=== PATIENT | male | born 1950 ===

== ENCOUNTER 2017-04-24 20:30 | Emergency (ER) | payer MEDICARE, MEDICAID ==
[2017-04-24 20:46] VITALS: RESP 16; TEMP 97.7
--- NOTE | 2017-04-24 22:00 | ED PDOC ---
HPI: Abdomen Time Seen by Provider: 04/24/17 20:59 Chief Complaint (Nursing): Abdominal Pain Chief Complaint (Provider): Diarrhea, weakness History Per: Patient Additional Complaint(s): 65yo male, PMH of PMH, CAD, HNT, DMTYPEII, HYPONATREMIA, OSTEOARTHRITIS, BPH, c /o abdominal cramping and generalized weakness, similar to past when "sodium was low". Denies chest pain, cough, fever. Denies new medications. Past Medical History Vital Signs: Last Vital Signs Temp 97.7 F 04/24/17 20:43 Pulse 71 04/24/17 20:43 Resp 16 04/24/17 20:43 BP 156/84 H 04/24/17 20:43 Pulse Ox 100 04/25/17 03:59 - Medical History PMH: Anxiety, CAD, Cardia Arrhythmia, Fractures (right ankle- fell on ice), HTN , Hypercholesterolemia Denies: HIV, Chronic Kidney Disease - Surgical History Surgical History: Cholecystectomy, Pacemaker - Family History Family History: States: No Known Family Hx - Home Medications Home Medications: Ambulatory Orders Medication Instructions Recorded Aspirin [Ecotrin] 81 mg PO DAILY 04/24/17 Carvedilol [Coreg] 12.5 mg PO BID 04/24/17 Clopidogrel [Plavix] 1 tab PO DAILY 04/24/17 Ferrous Sulfate [Feosol] 1 tab PO TID 04/24/17 Finasteride [Proscar] 1 tab PO DAILY 04/24/17 Glipizide [Glucotrol] 10 mg PO DAILY 04/24/17 Linagliptin [Tradjenta] 1 tab PO DAILY 04/24/17 Meloxicam [Mobic] 1 tab PO DAILY 04/24/17 Metformin HCl [Glucophage] 1,000 mg PO BID 04/24/17 Pravastatin Sodium [Pravachol] 1 tab PO DAILY 04/24/17 Tamsulosin HCl [Flomax] 1 tab PO DAILY 04/24/17 Valsartan [Diovan] 320 mg PO DAILY 04/24/17 Dicyclomine [Bentyl] 10 mg PO QID PRN #10 cap 04/25/17 - Allergies Allergies/Adverse Reactions: Allergies Allergy/AdvReac Type Severity Reaction Status Date / Time No Known Allergies Allergy Verified 05/12/15 12:23 - Laboratory Results Result Diagrams: 04/24/17 22:12 04/24/17 22:12 - ECG O2 Sat by Pulse Oximetry: 100 Medical Decision Making Medical Decision Making: CBC and COMP resulted WNL Amylase 161 Lipase 309 US IMPRESSION: Massively dilated common bile duct, noting the history of cholecystectomy, laboratory correlation is recommended. HIDA scan may sometimes clarify regarding biliary obstruction. The pancreas could not be visualized, cannot comment with regard to possibility of pancreatitis noted laboratory abnormalities described in the history. CT scan: IMPRESSION: 1. Probable enterocolitis noting fluid-filled large intestine. 2. Massive biliary ductal dilatation in this patient who is status post cholecystectomy, with suspicion for thickening of the adjacent duodenal wall and endoscopic correlation to exclude a lesion is recommended. Mild perinephric stranding, correlate for infection or stone passage. Appendix as above with acute appendicitis not favored at this time. Cardiomegaly. Case discussed with ED MD, Dr. Willams, who agreed Pt stable for discharge at this time. pt educated on all results and demonstrated full understanding. Importance of follow up was stressed. Advised to return to ED if at anytime condition worsens Disposition - Clinical Impression Clinical Impression: Abdominal discomfort - Patient ED Disposition Is Patient to be Admitted: No - Disposition Referrals: Gautam Pfeiffer MD [Staff Provider] - Disposition: Routine/Home Disposition Time: 03:58 Condition: STABLE Prescriptions: Dicyclomine [Bentyl] 10 mg PO QID PRN #10 cap PRN Reason: Pain, Mild (1-3) Instructions: Abdominal Pain (ED) Forms: [employer] (Slovak) Print Language: HAITIAN - POA Present On Arrival: None
[2017-04-24 22:16] LABS: BASO % 0.4 % (0.0-2.0); EOS # 0.2 K/uL (0.0-0.7); HEMATOCRIT 31.6 % (35.0-51.0); LYMPH # 1.7 K/uL (1.0-4.3); LYMPH % 18.6 % (20.0-40.0); MEAN CELL VOLUME 90.1 fl (80.0-94.0); MEAN CORPUSCULAR HEMOGLOBIN 31.3 pg (27.0-31.0); MEAN CORPUSCULAR HGB CONC 34.7 g/dL (33.0-37.0); MEAN PLATELET VOLUME 7.2 fl (7.2-11.7); MONO # 0.6 K/uL (0.0-0.8); MONO % 6.1 % (0.0-10.0); NEUT # 6.7 K/uL (1.8-7.0); NEUT % 72.9 % (50.0-75.0); RED CELL DISTRIBUTION WIDTH 13.3 % (11.5-14.5); WHITE BLOOD COUNT 9.2 K/uL (4.8-10.8)
[2017-04-24 22:25] LABS: ALB/GLOB RATIO 1.4 (1.0-2.1); ALKALINE PHOSPHATASE 55 U/L (38-126); ALT/SGPT 29 U/L (21-72); AMYLASE 161 U/L (30-110); AST/SGOT 20 U/L (17-59); BILIRUBIN,TOTAL 0.2 mg/dl (0.2-1.3); BLOOD UREA NITROGEN 10 mg/dl (9-20); CARBON DIOXIDE 21 mmol/L (22-30); CHLORIDE 100 mmol/L (98-107); GFR AFRICAN-AMERICAN > 60; GLUCOSE,RANDOM 108 mg/dL (75-110); LIPASE 309 U/L (23-300); POTASSIUM 4.1 MMOL/L (3.6-5.0); SODIUM 133 mmol/l (132-148); TOTAL PROTEIN 7.6 G/DL (6.3-8.2)
--- NOTE | 2017-04-25 00:33 | US ---
EXAM: US Abdomen Limited, Right Upper Quadrant CLINICAL HISTORY: 67 years old, male; Pain and abnormal findings; Abnormal lab test; Elevated amylase and elevated lipase; Abdominal pain; Epigastric; Additional info: Abdominal pain, elevated chevy/lipase TECHNIQUE: Real-time ultrasound of the right upper quadrant with image documentation. EXAM DATE/TIME: Exam ordered 04/24/2017 10:47 PM COMPARISON: No relevant prior studies available. FINDINGS: Liver: Liver is 15.3 cm. No intrahepatic bile duct dilation. Gallbladder: The patient is status post cholecystectomy. Common bile duct: Common bile duct is 15 mm which is markedly dilated even for the postcholecystectomy state. Pancreas: The pancreas was poorly seen and cannot be evaluated. Right kidney: Right kidney measures 10.8 x 4.2 x 4.6 cm. No stones. No hydronephrosis. IMPRESSION: Massively dilated common bile duct, noting the history of cholecystectomy, laboratory correlation is recommended. HIDA scan may sometimes clarify regarding biliary obstruction. The pancreas could not be visualized, cannot comment with regard to possibility of pancreatitis noted laboratory abnormalities described in the history.
[2017-04-25] MEDS ORDERED: Iohexol 240 (50 ml) PO ONE (00:48)
--- NOTE | 2017-04-25 03:37 | CT ---
EXAM: CT Abdomen and Pelvis With Intravenous Contrast CLINICAL HISTORY: 67 years old, male; Pain; Abdominal pain; Localized; Upper TECHNIQUE: Axial computed tomography images of the abdomen and pelvis with intravenous contrast. This CT exam was performed using one or more of the following dose reduction techniques: automated exposure control, adjustment of the mA and/or kV according to patient size, and/or use of iterative reconstruction technique. Coronal and sagittal reformatted images were created and reviewed. CONTRAST: 90 mL of [id number] administered intravenously. EXAM DATE/TIME: Exam ordered 04/25/2017 12:48 AM COMPARISON: US - RIGHT UPPER QUADRANT 04/24/2017 11:54:10 PM FINDINGS: Lower thorax: Artifact from a pacemaker is seen. There is cardiomegaly. Lung bases with prominent dependent vessels favored to represent gravitational changes. Small to moderate hiatus hernia containing oral contrast in keeping with reflux versus poor bolus passage. ABDOMEN: Liver: Unremarkable. No mass. Gallbladder and bile ducts: There is redemonstration of massive dilatation of the common bile duct in this patient status post cholecystectomy, with the common bile duct measuring up to 13.4 mm. There is relatively abrupt changing caliber at the ampulla, and suspicion as seen coronal image 54 for wall thickening of the adjacent duodenum. Endoscopic correlation to exclude a lesion is recommended. No calcified stones are seen and no choledocholithiasis was identified on ultrasound. There is moderate intrahepatic biliary ductal dilatation, particularly of the central intrahepatic biliary tree. Patient is status post cholecystectomy. Pancreas: The pancreatic duct is not dilated. Spleen: Unremarkable. No splenomegaly. Adrenals: Unremarkable. No mass. Kidneys and ureters: There is bilateral mild perinephric stranding. No hydronephrosis of either kidney. There is suggestion however of mild periureteral stranding of the right ureter. Laboratory correlation for possibility of stone passage versus infection is recommended. There are hypoattenuating findings too small to characterize in the bilateral kidneys. Stomach and bowel: There is fluid content in the majority of the large intestine with air-fluid level suggesting colitis/enterocolitis. There are no findings to suggest bowel obstruction. Appendix: The appendix is prominent at the tip measuring 9 mm as seen coronal image 61, however, it favor that the wall of the appendix is not thickened and there is no lala-appendiceal fluid, appendicitis is not favored. PELVIS: Bladder: Unremarkable. No mass. Reproductive: Prostate 3.5 cm. ABDOMEN and PELVIS: Intraperitoneal space: Unremarkable. No free air. No significant fluid collection. Bones/joints: Probable disc bulge at L5-S1. No acute fracture. No dislocation. Soft tissues: Unremarkable. Vasculature: Scattered atherosclerotic calcifications. No abdominal aortic aneurysm. Lymph nodes: Unremarkable. No enlarged lymph nodes. Other findings: Comparison is made to ultrasound of the right upper quadrant performed earlier the same night. IMPRESSION: 1. Probable enterocolitis noting fluid-filled large intestine. 2. Massive biliary ductal dilatation in this patient who is status post cholecystectomy, with suspicion for thickening of the adjacent duodenal wall and endoscopic correlation to exclude a lesion is recommended. Mild perinephric stranding, correlate for infection or stone passage. Appendix as above with acute appendicitis not favored at this time. Cardiomegaly.
[2017-04-25 04:03] VITALS: BP 132/84; PULSE 76
[2017-04-25 04:04] VITALS: O2SAT 100
--- NOTE | 2017-04-25 11:38 | RAD ---
HISTORY: med screening COMPARISON: Chest x-ray performed 05/12/15 TECHNIQUE: Chest, one view. FINDINGS: LUNGS: No focal consolidation. Please note that chest x-ray has limited sensitivity for the detection of pulmonary masses. PLEURA: No significant pleural effusion identified. No definite pneumothorax . CARDIOVASCULAR: Dual lead left-sided pacemaker.The cardiomediastinal silhouette appears within normal limits of size. OSSEOUS STRUCTURES: No acute osseous abnormality identified. VISUALIZED UPPER ABDOMEN: Unremarkable. OTHER FINDINGS: None. IMPRESSION: Dual lead left-sided pacemaker.
--- NOTE | 2017-04-25 19:21 | CARD ---
APPROVED REPORT EKG Measurement Heart [id number] <Conclusion> Atrial-sensed ventricular-paced rhythm with prolonged AV conduction Abnormal ECG
== END 2017-04-25 04:03 | disposition home or self-care (01) ==
LOC: H.ER 20:30
DX: R10.9 Unspecified abdominal pain (principal); R19.7 Diarrhea, unspecified; E78.00 Pure hypercholesterolemia, unspecified; F41.9 Anxiety disorder, unspecified; I10 Essential (primary) hypertension; I25.10 Atherosclerotic heart disease of native coronary artery without angina pectoris; Z79.82 Long term (current) use of aspirin; Z90.49 Acquired absence of other specified parts of digestive tract; Z95.0 Presence of cardiac pacemaker; K52.9 Noninfective gastroenteritis and colitis, unspecified
CPT/HCPCS: 71010; 74177; 76705; 80053; 82150; 82948; 83690; 84484; 85025; 93005; 99282; Q9966

== ENCOUNTER 2017-04-25 15:43 | Emergency (ER) | payer MEDICARE, MEDICAID ==
[2017-04-25 15:50] VITALS: BP 161/88; PULSE 87; RESP 16; TEMP 99; O2SAT 100
--- NOTE | 2017-04-25 17:15 | ED PDOC ---
HPI: General Adult Time Seen by Provider: 04/25/17 15:58 Chief Complaint (Nursing): GI Problem Chief Complaint (Provider): Anxiety History Per: Patient History/Exam Limitations: no limitations Have you had recent travel within the past 21 days to any of the following countries: [place], [place], [place] or [place]?: No Additional History Per: Patient Additional Complaint(s): Pt is a 67yo male, was seen in this facility yesterday for diarrhea - had a CT done as well as labs and was informed to follow up with GI specialist. Pt rpeorts he did not make an appointment for follow up. Today, he reports his diarrhea has slightly improved and denies any associated abdominal pain. Presents today due to anxiety; of note pt has a history of anxiety and states he has been noncompliant with his medication. When asked if pt is anxious due to his diarrhea symptoms, he responded no. Pt offers no additional medical complaints. Past Medical History Reviewed: Historical Data, Nursing Documentation, Vital Signs Vital Signs: Last Vital Signs Temp 99 F 04/25/17 15:46 Pulse 87 04/25/17 15:46 Resp 16 04/25/17 15:46 BP 161/88 H 04/25/17 15:46 Pulse Ox 100 04/25/17 17:18 - Medical History PMH: Anxiety, CAD, Cardia Arrhythmia, Fractures (right ankle- fell on ice), HTN , Hypercholesterolemia Denies: HIV, Chronic Kidney Disease - Surgical History Surgical History: Cholecystectomy, Pacemaker - Family History Family History: States: Unknown Family Hx - Home Medications Home Medications: Ambulatory Orders Medication Instructions Recorded Aspirin [Ecotrin] 81 mg PO DAILY 04/24/17 Carvedilol [Coreg] 12.5 mg PO BID 04/24/17 Clopidogrel [Plavix] 1 tab PO DAILY 04/24/17 Ferrous Sulfate [Feosol] 1 tab PO TID 04/24/17 Finasteride [Proscar] 1 tab PO DAILY 04/24/17 Glipizide [Glucotrol] 10 mg PO DAILY 04/24/17 Linagliptin [Tradjenta] 1 tab PO DAILY 04/24/17 Meloxicam [Mobic] 1 tab PO DAILY 04/24/17 Metformin HCl [Glucophage] 1,000 mg PO BID 04/24/17 Pravastatin Sodium [Pravachol] 1 tab PO DAILY 04/24/17 Tamsulosin HCl [Flomax] 1 tab PO DAILY 04/24/17 Valsartan [Diovan] 320 mg PO DAILY 04/24/17 Dicyclomine [Bentyl] 10 mg PO QID PRN #10 cap 04/25/17 - Allergies Allergies/Adverse Reactions: Allergies Allergy/AdvReac Type Severity Reaction Status Date / Time No Known Allergies Allergy Verified 04/25/17 15:46 Review of Systems ROS Statement: Except As Marked, All Systems Reviewed And Found Negative Gastrointestinal: Negative for: Abdominal Pain Psych: Positive for: Anxiety Physical Exam - Reviewed Nursing Documentation Reviewed: Yes Vital Signs Reviewed: Yes - Physical Exam Appears: Positive for: Well, Non-toxic, No Acute Distress Head Exam: Positive for: ATRAUMATIC, NORMAL INSPECTION, NORMOCEPHALIC Skin: Positive for: Normal Color Eye Exam: Positive for: Normal appearance Respiratory: Negative for: Respiratory Distress Gastrointestinal/Abdominal: Positive for: Soft. Negative for: Tenderness Neurologic/Psych: Positive for: Alert, Oriented - ECG O2 Sat by Pulse Oximetry: 100 (RA) Pulse Ox Interpretation: Normal Medical Decision Making Medical Decision Making: Time: 1608 Impression: Anxiety Plan: -- Crisis evaluation Scribe Attestation: Documented by Natalie Longo acting as a scribe for ARDEN Dietrich Provider Attestation: All medical record entries made by the Scribe were at my direction and personally dictated by me. I have reviewed the chart and agree that the record accurately reflects my personal performance of the history, physical exam, medical decision making, and the department course for this patient. I have also personally directed, reviewed, and agree with the discharge instructions and disposition. Disposition - Clinical Impression Clinical Impression: Anxiety - Patient ED Disposition Is Patient to be Admitted: No Counseled Patient/Family Regarding: Diagnosis, Need For Followup - Disposition Referrals: Community Mental Health [Outside] Disposition: Routine/Home Disposition Time: 18:29 Condition: GOOD Instructions: Anxiety (ED) Print Language: MAORI
== END 2017-04-25 18:42 | disposition home or self-care (01) ==
LOC: H.ER 15:43
DX: F41.9 Anxiety disorder, unspecified (principal); Z00.8 Encounter for other general examination; I10 Essential (primary) hypertension; Z95.0 Presence of cardiac pacemaker; I25.10 Atherosclerotic heart disease of native coronary artery without angina pectoris; Z91.14 Patient's other noncompliance with medication regimen